=== PATIENT | female | born 1990 | race Caucasian/White ===

== ENCOUNTER 2019-09-13 08:40 | Emergency (ER) | payer BC ==
[~2019-09-13 08:40] MED LIST: Azithromycin 250 MG Tab ONE; Benzonatate 100 MG Cap ONE
--- NOTE | 2019-09-13 09:40 | EDM.PDOC ---
ED HPI GENERAL MEDICAL PROBLEM - General Chief Complaint: Fever Time Seen by Provider: 09/13/19 09:15 Source of Information: Reports: Patient History Limitations: Reports: No Limitations - History of Present Illness INITIAL COMMENTS - FREE TEXT/NARRATIVE: Brandi presents with a week long history of URI sx's. Seen in [facility] on and diagnosed with viral URI. Symptoms worsened in the form of increase in cough and fever. Has more malaise. Some pain along her sternum bilaterally from being up all night with a cough. No h/a, or sore throat. No SOB, Gi/ sx's, and tolerates abx well. Upper Anterior Chest Pain Score (Numeric/FACES): 8 Bilateral Lower Posterior Back Pain Score (Numeric/FACES): 5 Past Medical History - Past Health History Medical/Surgical History: Denies Medical/Surgical History ED ROS GENERAL - Review of Systems Review Of Systems: Comprehensive ROS is negative, except as noted in HPI. ED EXAM, GENERAL - Physical Exam Exam: See Below Exam Limited By: No Limitations General Appearance: Alert, WD/WN, No Apparent Distress Eye Exam: Bilateral Eye: EOMI, PERRL Ears: Normal External Exam, Hearing Grossly Normal Nose: Normal Inspection, Normal Mucosa Throat/Mouth: Normal Inspection, Normal Oropharynx Head: Atraumatic, Normocephalic Neck: Normal Inspection, Supple, Non-Tender Respiratory/Chest: No Respiratory Distress, No Accessory Muscle Use, Rhonchi ( sparse bronchial sounds heard overlying sternum) Cardiovascular: Regular Rate, Rhythm, No Gallop, No Murmur, No Rub GI/Abdominal: Normal Bowel Sounds, Soft, Non-Tender, Other (no cva tenderness) Back Exam: Normal Inspection Extremities: Normal Inspection, Non-Tender, Normal Capillary Refill Neurological: Alert, Oriented, Normal Cognition, No Motor/Sensory Deficits Psychiatric: Normal Affect, Normal Mood Skin Exam: Warm, Dry, Intact Lymphatic: No Adenopathy Course - Vital Signs Last Recorded V/S: Last Vital Signs Temp 98.4 F 09/13/19 09:06 Pulse 100 09/13/19 09:06 Resp 20 09/13/19 09:06 BP 129/77 09/13/19 09:06 Pulse Ox 97 09/13/19 08:42 Departure - Departure Time of Disposition: 09:25 Disposition: Home, Self-Care 01 Clinical Impression: Fever Qualifiers: Fever type: unspecified Qualified Code(s): R50.9 - Fever, unspecified - Discharge Information Instructions: Community-Acquired Pneumonia, Adult, [id number] Referrals: PCP,None [Primary Care Provider] - Forms: ED Department Discharge Care Plan Goals: Take prescribed medications as directed, contact provider with any questions or concerns. Sepsis Event Note - Evaluation Sepsis Screening Result: No Definite Risk - Focused Exam Vital Signs: Vital Signs Temp Pulse Resp BP Pulse Ox 09/13/19 09:06 98.4 F 100 20 129/77 09/13/19 08:44 133/82 09/13/19 08:42 98.6 F 105 H 20 141/78 H 97 Date Exam was Performed: 09/13/19 Time Exam was Performed: 09:34 - Assessment/Plan Assessment:: Secondary worsening of cough in setting of URI- concerning for secondary bacterial process starting. Cover with [employer] and tessalon to help with cough. Reliable to return or see MD with persistent or worsening sx's
== END 2019-09-13 09:35 | disposition home or self-care (01) ==
LOC: LB.ED 08:40
DX: R50.9 Fever, unspecified (principal); R05 Cough
CPT/HCPCS: 87804; 99283; A9270